=== PATIENT | male | born 1955 | race Caucasian/White ===

== ENCOUNTER 2019-08-31 06:00 | Day surgery (SDC) ==
--- NOTE | 2019-08-24 17:46 | EKG Report ---
Test Performed on : 08/24/2019 5:39:27 PM Test Reason : PAT Blood Pressure : / mmHG Vent. Rate : 061 BPM Atrial Rate : 061 BPM P-R Int : 204 ms QRS Dur : 092 ms QT Int : 384 ms P-R-T Axes : 068 024 055 degrees QTc Int : 386 ms Sinus rhythm. with occasional premature ventricular complexes. Otherwise normal ECG When compared with ECG of 06-JUN-2019 14:00, Borderline criteria for Inferior infarct are no longer present QT has shortened Confirmed by Francine CEVALLOS, Sergey Sweeney ([id number]) on 08/25/2019 7:45:13 AM
[2019-08-24 18:21] LABS: URINE SOURCE CLEAN CATCH
[2019-08-24 18:27] LABS: BASO# 0.04 X1000 (0.0-0.2); BASO% 0.6 % (0.0-0.8); EOS# 0.12 X1000 (0.0-0.7); EOS% 1.7 % (0.0-10.0); HEMATOCRIT 41.3 % (42.0-52.0); HEMOGLOBIN 13.2 g/dL (14.0-18.0); LYMPH# 1.75 X1000 (1.2-3.4); LYMPH% 25.4 % (20.5-51.1); MCH 26.1 PG (27-31); MCV 81.6 FL (81-99); MONO# 0.69 X1000 (0.11-0.59); MPV 11.9 FL (7.4-10.4); NEUT% 62.3 % (42.2-75.2); PLT 116 X1000 (130-400); RBC 5.06 XMIL (4.7-6.1); RDW 15.3 % (11.5-14.5)
[2019-08-24 18:30] LABS: BILIRUBIN URINE NEGATIVE (NEGATIVE); BLOOD URINE NEGATIVE (NEGATIVE); COLOR YELLOW; GLUCOSE URINE NEGATIVE (NEGATIVE); KETONE URINE NEGATIVE (NEGATIVE); LEUKOCYTES URINE NEGATIVE (NEGATIVE); NITRITE URINE NEGATIVE (NEGATIVE); PROTEIN URINE NEGATIVE (NEGATIVE); SP GRAVITY URINE 1.007; TURBIDITY URINE CLEAR (CLEAR); UROBILINOGEN URINE NORMAL (NORMAL)
[2019-08-24 18:36] LABS: UR EPITHELIAL CELLS <10 /HPF (<10); URINE BACTERIA NEGATIVE /HPF; URINE RBC <10 /HPF (<10); URINE WBC <10 /HPF (<10)
[2019-08-24 18:37] LABS: INR 1.07
[2019-08-24 18:51] LABS: HEMOGLOBIN A1C 5.6 % (4.8-6.0)
[2019-08-24 18:59] LABS: AGAP 10; BUN 12 mg/dL (8-22); CALCIUM 8.8 mg/dL (8.8-10.2); CHLORIDE 98 mmol/L (98-107); COSMO 278; ESTIMATED GFR > 60; GLUCOSE 84 mg/dL (70-104); POTASSIUM 4.3 mmol/L (3.5-5.1); SODIUM 140 mmol/L (136-145); TCO2 32 mmol/L (25-35)
[2019-08-31] MEDS ORDERED: PEPCID ONE (07:10)
[2019-08-31] MEDS ORDERED: COLACE ONE (07:10)
[2019-08-31] MEDS ORDERED: LYRICA ONE (07:11)
[2019-08-31] MEDS ORDERED: CELEBREX ONE (07:11)
[2019-08-31] MEDS ORDERED: LR 1,000 ML ONE (07:11)
[2019-08-31] MEDS ORDERED: KEFZOL 1 GM/D5W 2 GM/100 ML IVPB ONE (07:11)
[2019-08-31] MEDS ORDERED: MARCAINE 0.25% PF/EPI 1:200,000 ONE (08:08)
[2019-08-31] MEDS ORDERED: DURAMORPH ONE (08:08)
[2019-08-31] MEDS ORDERED: VANCOMYCIN ONE (08:08)
[2019-08-31] MEDS ORDERED: TORADOL ONE (08:08)
[2019-08-31] MEDS ORDERED: SODIUM CHLORIDE 0.9% ONE (08:09)
[2019-08-31] MEDS ORDERED: XYLOCAINE-MPF 2% ONE (08:23)
[2019-08-31] MEDS ORDERED: DIPRIVAN 1% 500 MG/50 ML BOTTLE ONE (08:25)
[2019-08-31] MEDS ORDERED: FENTANYL ONE (08:35)
[2019-08-31] MEDS ORDERED: VERSED ONE (08:41)
[2019-08-31] MEDS ORDERED: DECADRON ONE (08:58)
[2019-08-31] MEDS: CYKLOKAPRON 1,000 MG/NS 2,000 MG/200 ML IVPB ONE ×2 (08:58→10:10)
[2019-08-31] MEDS ORDERED: ZOFRAN ONE (08:58)
[2019-08-31] MEDS ORDERED: OFIRMEV 1000 MG/ISOTONIC SOLN 1,000 MG/100 ML BOTTLE ONE (08:58)
[2019-08-31] MEDS ORDERED: EPHEDRINE ONE (09:03)
[2019-08-31] MEDS ORDERED: ROBINUL ONE (09:31)
[2019-08-31 09:48] LABS: URINE SOURCE CATH
[2019-08-31 09:52] LABS: BILIRUBIN URINE NEGATIVE (NEGATIVE); BLOOD URINE NEGATIVE (NEGATIVE); COLOR YELLOW; GLUCOSE URINE NEGATIVE (NEGATIVE); KETONE URINE NEGATIVE (NEGATIVE); LEUKOCYTES URINE NEGATIVE (NEGATIVE); NITRITE URINE NEGATIVE (NEGATIVE); PH URINE 7.5; PROTEIN URINE TRACE mg/dL (NEGATIVE); TURBIDITY URINE CLEAR (CLEAR); UROBILINOGEN URINE 4 mg/dL (NORMAL)
[2019-08-31 09:54] LABS: UR EPITHELIAL CELLS <10 /HPF (<10); URINE BACTERIA NEGATIVE /HPF; URINE RBC <10 /HPF (<10); URINE WBC <10 /HPF (<10)
[2019-08-31] MEDS ORDERED: DIPRIVAN 1% ONE (10:03)
[2019-08-31] MEDS ORDERED: NS 1,000 ML ONE (11:24)
--- NOTE | 2019-08-31 11:24 | Diag Imaging Result Doc PS360 ---
EXAM: KNEE 1-2 VIEWS-LEFT 08/31/2019 HISTORY: post op TECHNIQUE: Left knee two views COMMENT: There is a total knee arthroplasty. No acute bony abnormalities are otherwise present. IMPRESSION: Postsurgical changes. Electronically signed by Sae Santiago 08/31/2019 11:22 AM
[2019-08-31] MEDS ORDERED: OXY IR PO PRN (12:00)
[2019-08-31] MEDS ORDERED: MORPHINE IV PRN ×3 (12:00)
[2019-08-31] MEDS: NS 1,000 ML IV SCH (12:08)
[2019-08-31] MEDS: OXY IR PO PRN ×2 (12:24→23:04)
[2019-08-31] MEDS: MYLICON PO SCH ×3 (13:45→23:06)
[2019-08-31] MEDS: KEFZOL 2 GM/D5W 2 GM/50 ML IVPB IV SCH (16:38)
--- NOTE | 2019-08-31 20:54 | OPERATIVE NOTE ---
PROCEDURE DATE: 08/31/2019 PREOPERATIVE DIAGNOSIS: Degenerative osteoarthritis, left knee. POSTOPERATIVE DIAGNOSIS: Degenerative osteoarthritis, left knee. PROCEDURE: Left total knee arthroplasty with DePuy Attune size 7 posterior stabilized femur, size 8 tibial tray, 12 mm rotating platform tibial insert, and a 38 mm medialized anatomic patella. SURGEON: Max Meyer MD TRANSITIONAL CARE LIAISON: SOURAV Rivera, who was necessary for proper positioning, retraction and manipulation of the extremity during the case. SECOND ASSISTANTS: SOURAV Hess; Julio Cisse RN ANESTHESIA: Spinal. INTRAVENOUS FLUIDS: Lactated Ringer 2000 mL ESTIMATED BLOOD LOSS: 30 mL TOURNIQUET TIME: 90 minutes at 300 mmHg. COMPLICATIONS: None. INDICATION: The patient is a 64-year-old male with chronic history of worsening pain and discomfort in his left knee. He has continued pain and discomfort despite appropriate nonoperative treatment. X-rays reveal significant degenerative osteoarthritis. Recommendation to proceed with left total knee arthroplasty was offered. Risks and benefits of surgery were explained, including the risks of anesthesia, , bleeding, infection, failure to relieve pain, postoperative stiffness, nerve injury, blood clots and other imponderables. All questions were answered. The patient and family wished to proceed with surgery. DETAILS OF OPERATION: The patient was taken to the operating room and placed supine on the operating table. Once adequate anesthesia was obtained, the patient's left lower extremity was subsequently prepped and draped in the usual sterile fashion. An Esmarch was used to exsanguinate the left lower extremity. The tourniquet was inflated to 300 mmHg. A standard anterior incision was made with a skin knife. Medial and lateral skin envelopes were developed. Standard medial parapatellar arthrotomy was then performed. The patella fat pad was excised. Retractor was then placed. Approximately 1 cm anterior to the PCL insertion, a starting reamer was passed. An intramedullary guide and distal femoral cutting block were pinned in position. Distal femoral cut was then performed in standard fashion. A sizing block was placed, measuring size 7. Corresponding pins were placed. Chamfer block was pinned in position. Anterior, posterior and chamfer cuts were then made. Attention then turned to the proximal tibia, where using the extramedullary guide the cutting block was pinned in position. We had good alignment, confirmed with the alignment nataly. The proximal tibia was then resected. Medial and lateral menisci were excised. A curved osteotome was used to remove the posterior osteophytes off the distal femur. A spacer block was then placed. We had good soft tissue balance with flexion and extension. The attention turned back to the proximal tibia, where a size 8 tibial tray appeared to be the correct size. This was pinned in position. This was followed by a central reamer and a fin punch. A box cutting guide was then pinned on the distal femur and box cut was performed. A trial femoral component was then placed. Two lug holes were drilled. Trial tibial insert was then placed, with good soft tissue balancing. The patella was everted and resected in standard fashion. A size 38 appeared to be the correct size. Corresponding holes were drilled. The trial patella component was then placed, and it had good patellofemoral tracking. After this had been performed, the trial components were removed. Copious irrigation was then performed with antibiotic pulsatile lavage while vancomycin was mixed with cement on the back table. Sequential cementing was then performed, first with the tibial tray and excess cement was removed with a [place]. This was followed by the femoral component. Any excess cement was removed with a [place], followed by trial tibial insert. Full extension and axial loading was maintained while the cement cured. The patella component was cemented in standard fashion. Patella clamp was placed. While the cement was curing, Exparel was placed in deep soft tissue as well as subcutaneous tissue. After the cement had cured, peripheral cement was removed with a small osteotome. Trial insert 12 mm appeared be correct size for the insert. The trial insert was removed. Exparel was placed in the deep posterior capsule. The wound was copiously irrigated with antibiotic pulsatile lavage. A 12 mm rotating platform tibial insert was then placed and the knee was carried through range of motion. We had good range of motion, good soft tissue balance and good patellofemoral tracking. A 1/8-inch Hemovac drain was placed and was not sewn in. Copious irrigation was performed once again with antibiotic pulsatile lavage. Number 1 Vicryl was then used to repair the arthrotomy, followed by 2-0 Vicryl to repair the subcutaneous tissue and skin flaquito. Adaptic, sterile 4 x 4's, Webril, cryotherapy unit and Albino wrap were applied to the left lower extremity. The patient tolerated the procedure well, was transferred to the recovery room in stable condition. cc: Max Meyer MD
[2019-08-31] MEDS ORDERED: AMBIEN PO SCH (21:00)
[2019-08-31] MEDS ORDERED: LAMICTAL PO SCH (21:00)
[2019-08-31] MEDS ORDERED: BUSPAR PO SCH (21:00)
[2019-08-31] MEDS ORDERED: CYMBALTA PO SCH (21:00)
[2019-08-31] MEDS ORDERED: SEROQUEL PO SCH (21:00)
[2019-08-31] MEDS: PERIDEX MT SCH (23:06)
[2019-09-01] MEDS: KEFZOL 2 GM/D5W 2 GM/50 ML IVPB IV SCH (01:20)
[2019-09-01] MEDS: NS 1,000 ML IV SCH (01:20)
[2019-09-01] MEDS: ZOFRAN PO PRN ×2 (03:53→08:47)
[2019-09-01] MEDS ORDERED: XARELTO PO SCH (06:00)
[2019-09-01 06:36] LABS: HEMATOCRIT 32.3 % (42.0-52.0); HEMOGLOBIN 10.3 g/dL (14.0-18.0)
[2019-09-01] MEDS ORDERED: PRILOSEC PO SCH (07:00)
[2019-09-01 07:28] VITALS: BP 117/65
[2019-09-01 07:32] LABS: CALCIUM 8.6 mg/dL (8.8-10.2); CREATININE 1.3 mg/dL (0.7-1.2); POTASSIUM 4.3 mmol/L (3.5-5.1)
[2019-09-01] MEDS: MYLICON PO SCH (08:41)
[2019-09-01] MEDS: PERIDEX MT SCH (08:41)
[2019-09-01] MEDS ORDERED: PRINZIDE 10/12.5MG PO SCH (09:00)
[2019-09-01] MEDS ORDERED: ARICEPT PO SCH (09:00)
--- NOTE | 2019-09-01 12:10 | ORTHOPAEDICS PROGRESS NOTE ---
DATE: 09/01/2019 SUBJECTIVE: Mr. Head is sitting up in bed this morning and does not have any complaints at this time. He is in no acute distress. He has not had any increase in pain. He is status post day 1 of a left total knee arthroplasty. OBJECTIVE: General: Mr. Head is sitting up in bed in no acute distress. Extremities: His dressing is still in place from yesterday and is clean, dry and intact with no active drainage noted. He is able to dorsiflex and plantar flex his foot without any difficulty. His calf is soft. His sensation is intact distally to his incision line. Vital Signs: His vital signs have remained stable. He has not been afebrile. His H and H is stable this morning at 10.3 and 32.3. ASSESSMENT: Status post day 1 left total knee arthroplasty. PLAN: Mr. Head will complete his physical therapy at [facility] in [place]. He will follow up with us in [place] on September 13, 2019. He will be given Percocet as needed for his pain at home, and he will begin Xarelto 10 mg for DVT prophylaxis. Dictated by SOURAV Ferrell for Max Meyer MD cc: Max Meyer MD
== END 2019-09-01 11:03 | disposition home or self-care (01) ==
LOC: OR 06:00 → 4N 06:00 → OR 09-01 11:03
PROVIDERS: ATTEND Orthopaedic Surgery Adult Reconstructive Orthopaedic Surgery